=== PATIENT | male | born 1955 | race Caucasian/White ===

== ENCOUNTER 2016-08-14 14:54 | Emergency (ER) | payer OTHER ==
[~2016-08-14] VITALS: Ht 188 cm; Wt 140.5 kg
[2016-08-14 14:55] VITALS: BP 157/75; PULSE 79; RESP 18; TEMP 97.9; O2SAT 97
[2016-08-14] MEDS ORDERED: LISI2.5T3 PO (16:44)
--- NOTE | 2016-08-14 16:45 | PD ---
HPI Chief Complaint: Skin Problem Time Seen by Provider: 16:43 Travel History International Travel<30 days: No Contact w/Intl Traveler<30days: No Traveled to known affect area: No History of Present Illness HPI 61-year-old male presents to emergency Department with complaint of a sebaceous cyst to his back that he had drained 2 weeks ago that formed a head and drained yesterday. Reports redness and irritation to the area. He was given doxycycline and completed the full course of antibiotics as prescribed. He denies pain to the area. Denies fever, chills, nausea, vomiting. Allergies to penicillin. Primary care provider is in [place]. History of asthma and hypertension. No other modifying factors or associated signs and symptoms. PFSH Past Medical History Asthma: Yes Hypertension: Yes Social History Tobacco Use: No Allergies-Medications (Allergen,Severity, Reaction): Coded Allergies: Penicillin (Verified Allergy, Severe, 08/14/16) Reported Meds & Prescriptions Reported Meds & Active Scripts Active Reported Lisinopril 2.5 Mg Tab 2.5 Mg PO DAILY Review of Systems Except as stated in HPI: all other systems reviewed are Neg Physical Exam Narrative GENERAL: Well-nourished, well-developed male patient, in no acute distress; afebrile, nontoxic SKIN: There is an indurated area to the mid upper back which measures about 2 cm in diameter; without tenderness to palpation, warmth to touch; does not appear infected. The area is without any zone of inflammation surrounding it. It is open and draining a very minimal amount of serosanguineous fluid. HEAD: Atraumatic. Normocephalic. EYES: Pupils equal and round. No scleral icterus. No injection or drainage. ENT: Mucosa pink and moist. Airway patent. NECK: Trachea midline. CARDIOVASCULAR: Regular rate. RESPIRATORY: No accessory muscle use. GASTROINTESTINAL: Obese. MUSCULOSKELETAL: No obvious deformities. No clubbing. No cyanosis. No edema. NEUROLOGICAL: Awake and alert. Oriented 3. No obvious cranial nerve deficits. Motor grossly within normal limits. Normal speech. PSYCHIATRIC: Appropriate mood and affect; insight and judgment normal. Data Data Last Documented VS Vital Signs Date Time Temp Pulse Resp B/P Pulse Ox O2 Delivery O2 Flow Rate FiO2 08/14/16 14:55 97.9 79 18 157/75 97 Room Air Orders Wound Culture And Gram Stain (08/14/16 16:45) [facility] Medical Decision Making Medical Screen Exam Complete: Yes Emergency Medical Condition: Yes Medical Record Reviewed: Yes Differential Diagnosis Wound recheck, wound infection, abscess Narrative Course 61-year-old male with a sebaceous cyst to his mid upper back strain 2 weeks ago and opened up yesterday with drainage. Patient was prescribed antibiotics after the procedure which he completed. The wound is draining a very minimal amount of serosanguineous drainage. Wound culture pending. There are no signs of infection. The wound appears to be with normal healing. Patient is afebrile and nontoxic-appearing. He denies fever, chills, nausea, vomiting. I do not feel that antibiotics are necessary at this time. Discussed reasons for the patient to return back to the emergency department and he verbalized understanding and agreement. Patient is medically cleared and stable for discharge. Discussed reasons to return to the emergency department. Instructed patient to follow up with primary care provider. Patient agrees with treatment plan. The patients vital signs are stable and the patient is stable for outpatient follow-up and treatment. Patient discharged home, stable and in no acute distress. Diagnosis Primary Impression: Encounter for wound re-check Referrals: Primary Care Physician Patient Instructions: Acute Wound Care (ED), General Instructions Additional Instructions: Keep area clean and dry Refer to acute wound care instructions for care of wound Follow-up with primary care provider Return to the emergency department immediately with worsening of symptoms Med/Other Pt SpecificInfo: No Change to Meds, No Meds Exist/No RX given Disposition: 01 DISCHARGE HOME Condition: Stable Toña Garcia Aug 14, 2016 16:45
== END 2016-08-14 17:02 | disposition home or self-care (01) ==
LOC: NEPB 14:54
DX: L72.3 Sebaceous cyst (principal); J45.909 Unspecified asthma, uncomplicated; I10 Essential (primary) hypertension
CPT/HCPCS: 86403; 87070; 87205; 99282